=== PATIENT | male | born 1945 | race Caucasian/White ===

== ENCOUNTER 2022-05-14 15:24 | Emergency (ER) | payer MEDICARE, OTHER ==
[2022-05-14] MEDS ORDERED: Ibuprofen 800 MG TAB ONE (15:53)
== END 2022-05-14 16:40 | disposition home or self-care (01) ==
LOC: NAV ERS 15:24
DX: S63.502A Unspecified sprain of left wrist, initial encounter (principal); S50.12XA Contusion of left forearm, initial encounter; I10 Essential (primary) hypertension; Z79.899 Other long term (current) drug therapy; W19.XXXA Unspecified fall, initial encounter

== ENCOUNTER 2024-06-21 07:22 | Emergency (ER) | payer OTHER ==
[2024-06-21 07:36] LABS: #Basophils 0.1 thou/uL (0.0-0.2); #Eosinophils 0.2 thou/uL (0.0-0.7); #Lymphocytes 2.9 thou/uL (1.20-3.40); #Monocytes 0.5 thou/uL (0.11-0.59); #Neutrophils 2.7 thou/uL (1.40-6.50); %Basophils 0.9 % (0.0-1.0); %Eosinophils 2.7 % (0.0-10.0); %Lymphocytes 45.4 % (21.0-51.0); %Monocytes 7.7 % (0.0-10.0); %Neutrophils 43.3 % (42.0-75.0); Hematocrit 50.3 % (42.0-52.0); Hemoglobin 16.9 g/dL (14.0-18.0); Mean Corpuscular HGB CONC 33.6 g/dL (32.0-36.0); Mean Corpuscular Hemoglobin 30.9 pg (27.0-31.0); Mean Corpuscular Volume 91.9 fl (78.0-98.0); Mean Platelet Volume 9.2 fL (7.4-10.4); Platelet Count 134 10x3/uL (130-400); Red Blood Cell (RBC) Count 5.47 mill/uL (4.70-6.10); White Blood Cell (WBC) Count 6.3 10x3/uL (4.8-10.8)
[2024-06-21] MEDS ORDERED: Aspirin Chewable 81 MG TAB ONE (07:40)
[2024-06-21 07:55] LABS: ALT (SGPT) 26 U/L (8-55); AST (SGOT) 26 U/L (5-34); Albumin 4.1 g/dL (3.4-4.8); Alkaline Phosphatase 81 U/L (40-110); Anion Gap 15 mmol/L (10-20); BUN (Urea Nitrogen) 15 mg/dL (8.4-25.7); Bilirubin, Total 1.1 mg/dL (0.2-1.2); Calc. Creatinine Clearance 0 mL/min (70-130); Calcium 9.4 mg/dL (7.8-10.44); Carbon Dioxide 21 mmol/L (23-31); Chloride 103 mmol/L (98-107); Estimated GFR 57; Globulin 3.2 g/dL (2.4-3.5); Glucose 98 mg/dL (83-110); Potassium 3.7 mmol/L (3.5-5.1); Protein, Total 7.3 g/dL (5.8-8.1); Sodium 135 mmol/L (136-145); Troponin I Less than 0.010 ng/mL (< 0.028)
[2024-06-21] MEDS ORDERED: Nitroglycerin 0.4 MG TAB 1 EACH ONE ×2 (08:32→08:45)
[2024-06-21] MEDS ORDERED: Iopamidol 370 76% 100 ML VIAL ONE (09:00)
[2024-06-21] MEDS ORDERED: Ketorolac Tromethamine 30 MG (1 mL) VIAL ONE (09:12)
== END 2024-06-21 11:27 | disposition short-term general hospital (02) ==
LOC: NAV ERS 07:22
DX: I10 Essential (primary) hypertension (principal)
CPT/HCPCS: 71045; 71275; 74174; 80053; 83880; 84484 ×2; 85025; 85379; 93005; 94760; J1885; Q9967; 96374